=== PATIENT | female | born 1945 | race Caucasian/White ===

== ENCOUNTER 2023-03-01 12:58 | Outpatient (CLI) | payer MEDICARE ==
[2023-03-01] MEDS ORDERED: Iopamidol 370 76% 100 ML VIAL ONE (13:06)
== END 2023-03-01 12:59 | disposition home or self-care (01) ==
LOC: BICCT 12:58
PROVIDERS: ATTEND Internal Medicine Hematology & Oncology
DX: C64.1 Malignant neoplasm of right kidney, except renal pelvis (principal); Z90.5 Acquired absence of kidney; Z90.710 Acquired absence of both cervix and uterus
CPT/HCPCS: 74177; Q9967